=== PATIENT | female | born 1960 | race Caucasian/White ===

== ENCOUNTER → 2022-10-07 | Outpatient (CLI) | payer MEDICARE, MEDICAID, SELFPAY ==
--- NOTE | 2022-10-08 11:19 | PFT ---
INTRODUCTION: The patient is a 62-year-old female that presents for pulmonary function studies secondary to a diagnosis of shortness of breath. Respiratory therapy reported good patient effort. Bronchodilators were used during testing. INTERPRETATION: Forced expiration spirometry demonstrates the presence of a severe large airways obstructive ventilatory defect. There was no significant response to aerosolized bronchodilators. Spirograms are of fair quality but do not plateau indicating slow emptying of the lungs. Body plethysmography was performed and revealed a decreased TLC to 2.76 L, 68% of predicted, indicative of a moderate restrictive ventilatory impairment. Diffusing capacity by single breath CO is reduced at 63% of predicted. IMPRESSION: Irreversible severe mixed ventilatory defect with mild reduction in diffusing capacity.
== END | disposition home or self-care (01) ==
PROVIDERS: PCP Family Medicine; Visit Provider Internal Medicine Critical Care Medicine
DX: R06.02 Shortness of breath (principal)
CPT/HCPCS: 94060; 94726; 94729

== ENCOUNTER → 2022-10-17 | Outpatient (CLI) | payer MEDICARE, MEDICAID, SELFPAY ==
[2022-10-17 12:59] VITALS: PULSE 101; PULSE 104; PULSE 78; PULSE 88; PULSE 92; PULSE 93; PULSE 96; O2SAT 86; O2SAT 88; O2SAT 90; O2SAT 91; O2SAT 92; O2SAT 93; O2SAT 94; O2SAT 95
--- NOTE | 2022-10-17 13:02 | CPS ---
PATIENT HAS HOME OXYGEN THROUGH [facility]. SHE USED A ROLLATOR WALKER FOR STABILITY. WALK TEST BEGAN ON ROOM AIR. OXYGEN PLACED AT 2LPM D/T SPO2 86%. SHE IS INTERESTED IN POC DEVICE TO MAINTAIN MOBILITY AND INCREASE COMPLIANCE WITH USE. PRELIM DATA SENT WITH PT TO F/U APPT AT 7515.
--- NOTE | 2022-10-18 05:30 | PCM.PSN.6M ---
PSN 6 Minute Walk Test 6 Minute Walk Test 6 Minute Walk Test: 6 Minute Walk Test PSN:6-Minute Walk Test Start: 10/17/22 12:59 Freq: Status: Active Protocol: [id number] Document 10/17/22 12:59 [facility] (Rec: 10/17/22 13:05 [facility] [id number]) 6 Minute Walk Test Date Performed 10/17/22 Time Performed 12:30 Height 5 ft Weight: 92.986 kg Weight in Pounds 205.[address]: Tod Kennedy Assistive device used: Walker Pre-test Oxygen Delivery Method Room Air Pulse Ox (%) 92 Pulse Rate (60-100 beats/min) 88 Dyspnea Mika Scale (0-10) 2 1st minute Oxygen Delivery Method Room Air Pulse Ox (%) 91 Pulse Rate (60-100 beats/min) 93 Dyspnea Mika Scale (0-10) 3 Number of Rests Taken 0 Reported Symptoms Increased Work of Breathing 2nd minute Oxygen Delivery Method Room Air Pulse Ox (%) 90 Pulse Rate (60-100 beats/min) 92 Dyspnea Mika Scale (0-10) 3 Number of Rests Taken 1 Reported Symptoms Increased Work of Breathing 3rd minute Oxygen Delivery Method Room Air Pulse Ox (%) 88 Pulse Rate (60-100 beats/min) 101 H Dyspnea Mika Scale (0-10) 4 Number of Rests Taken 0 Reported Symptoms Increased Work of Breathing 4th minute Oxygen Delivery Method Room Air Pulse Ox (%) 86 Pulse Rate (60-100 beats/min) 104 H Dyspnea Mika Scale (0-10) 5 Number of Rests Taken 1 Reported Symptoms Increased Work of Breathing 5th minute Oxygen Flow Rate (L/min) (L/min) 2 Oxygen Delivery Method Nasal Cannula Pulse Ox (%) 94 Pulse Rate (60-100 beats/min) 96 Dyspnea Mika Scale (0-10) 4 Number of Rests Taken 0 Reported Symptoms Increased Work of Breathing 6th minute Oxygen Flow Rate (L/min) (L/min) 2 Oxygen Delivery Method Nasal Cannula Pulse Ox (%) 95 Pulse Rate (60-100 beats/min) 93 Dyspnea Mika Scale (0-10) 4 Number of Rests Taken 0 Reported Symptoms Increased Work of Breathing Post-test Oxygen Delivery Method Room Air Pulse Ox (%) 93 Pulse Rate (60-100 beats/min) 78 Dyspnea Mika Scale (0-10) 2 Full Laps Walked 10 Partial Lap, Number of Tiles Walked 42 Total Distance Walked (ft) 632 10/17/22 13:02 Cardiopulmonary Services by Sumaya Ramirez PATIENT HAS HOME OXYGEN THROUGH [facility]. SHE USED A ROLLATOR WALKER FOR STABILITY. WALK TEST BEGAN ON ROOM AIR. OXYGEN PLACED AT 2LPM D/T SPO2 86%. SHE IS INTERESTED IN POC DEVICE TO MAINTAIN MOBILITY AND INCREASE COMPLIANCE WITH USE. PRELIM DATA SENT WITH PT TO F/U APPT AT 1315. Initialized on 10/17/22 13:02 - END OF NOTE Interpretation Interpretation: The patient was noted to have a lower baseline saturation of 92% on room air at rest. However, in the fourth minute patient desaturated to 86% and required 2 L nasal cannula oxygen. This did maintain saturations throughout the rest of the ambulation. In total, the patient traveled 632 feet over the course of 6 minutes with the assistance of a wheeled walker into breaks. These findings are consistent with a respiratory limitation exercise tolerance. Recommendations Recommendations: No supplemental oxygen is indicated at rest, but patient should be using 2 L nasal cannula with exertion.
== END | disposition home or self-care (01) ==
PROVIDERS: PCP Family Medicine; Visit Provider Internal Medicine Critical Care Medicine
DX: R06.02 Shortness of breath (principal)
CPT/HCPCS: 94618

== ENCOUNTER → 2022-10-28 | Outpatient (CLI) | payer MEDICARE, MEDICAID, SELFPAY | END | disposition home or self-care (01) | LOC: SL 20:42 | PROVIDERS: PCP Family Medicine; Visit Provider Nurse Practitioner Acute Care | DX: G47.33 Obstructive sleep apnea (adult) (pediatric) (principal) | CPT/HCPCS: 95811 ==

== ENCOUNTER → 2023-04-10 | Outpatient (CLI) | payer MEDICARE, MEDICAID, SELFPAY ==
--- NOTE | 2023-04-10 13:57 | CT_ITS ---
STUDY: LOW DOSE CT LUNG CANCER SCREENING REASON FOR EXAM: Female, 62 years old. H/o Tobacco Dependency. Patient smoked 1 1/2 pack per day for 40 years. RADIATION DOSAGE (If Supplied By Facility): CTDIvol = ( 3.02 ) mGy, DLP = ( 100.05 ) mGycm TECHNIQUE: No contrast was administered. Low dose technique was utilized (average mAS-38 and kVp 120). 1.25 mm axial source images with a slice interval of 1.25-mm were reconstructed in lung windows. 2.5 mm axial source images with a slice interval of 2.5-mm were reconstructed in lung windows. 5.0 mm axial source images with a slice interval of 5.0-mm were reconstructed in soft tissue windows. COMPARISON: Comparison is made with prior study dated October 27, 2016. NODULES: There is a 1.5 cm x 2 cm pleural-based nodular density in the lateral aspect of the right lower lobe. This is pleural-based. This is seen on axial image #169 and sagittal image #62. This may represent a focal area of scarring although correlation with a PET scan is recommended. Emphysema: Minimal degree of emphysematous changes. Endobronchial lesion: None Aorta: Atherosclerotic calcification of the aortic arch. CORONARY ARTERIES: Coronary artery calcification is seen. Heart: Unremarkable. Pulmonary artery: Unremarkable Mediastinal nodes: Small benign-appearing mediastinal lymph nodes. Other chest and abdominal findings: CT/Low Dose CT Lung Screening IMPRESSION: Lung-RADS category 4A - Screening at 3 months with LDCT or evaluation with PET/CT may be used. IMPORTANT NOTES FOR USE: ACR Lung-RADS Version 1.1 Assessment Categories Release Date: 2018 Category: Coded 0-4 bases on nodule(s) with highest degree of suspicion. Negative screen is defined as categories 1 and 2; a positive screen is defined as categories 3 and 4. Category 3 and 4A nodules that are unchanged on interval CT should be coded as category 2, and individuals returned to screening in 12 months. Category 4X: Category 3 or 4 nodules with additional imaging findings that increase the suspicion of lung cancer, such as spiculation, GGN that doubles in size in 1 year, enlarged lymph notes, etc. Category Modifiers: S (significant finding unrelated to lung cancer) Electronically Signed: Christiano Barnett MD at 14:55 EDT ,
== END | disposition home or self-care (01) ==
LOC: CT 13:54
PROVIDERS: Referring Provider Internal Medicine Critical Care Medicine; Visit Provider Internal Medicine Critical Care Medicine
DX: F17.211 Nicotine dependence, cigarettes, in remission (principal)
CPT/HCPCS: 71271

== ENCOUNTER → 2023-04-21 | Outpatient (CLI) | payer MEDICARE, MEDICAID, SELFPAY ==
--- NOTE | 2023-04-21 11:00 | PET_ITS ---
EXAMINATION: FDG PET-CT INDICATIONS: A 62-year-old female with a history of pulmonary nodularity. COMPARISON EXAMINATION: CT of the chest report dated 04/10/23. INDEX LESION SIZE SUV INTERPRETATION Right lower lateral lung field, right lower lobe 1.8 max Quantitative criteria for viable neoplasm are not fulfilled, sequential radiologic investigation recommended. TECHNIQUE: Following the intravenous administration of 13.19 mCi of F-18 deoxyglucose via the right hand, multiplanar image acquisitions of the head, neck, chest, abdomen and pelvis to level of mid-thigh, lower extremities obtained at one hour post radiopharmaceutical administration contemporaneously interpreted with the current CT of the head, neck, chest, abdomen and pelvis to level of mid-thigh, lower extremities dated 04/21/[address] of the chest report dated 04/10/23 reveal: SERUM GLUCOSE LEVEL: 119 mg/dl. HEIGHT: 60 inches. WEIGHT: 187 lbs. FINDINGS: Head/Neck: There is no evidence of abnormal increased glucose metabolism in the pharyngeal mucosal space, parapharyngeal space, bilateral-lateral and anterior neck, hypopharynx and distribution of the laryngeal structures. The visualized portion of the cerebral cortical-subcortical structures demonstrate symmetric and preserved glucose metabolism. CHEST: Mild increased radiopharmaceutical concentration is noted in the right lower lateral lung zone, right lower lobe corresponding to a pleural based density defined on CT of the thorax dated 04/21/23. The calculated maximum standard uptake value is 1.8. Prominent radiopharmaceutical concentration is identified in the left ventricular myocardium commensurate with the [place]. Pertinent chest CT findings are as follows. There are no additional parenchymal densities-nodules defined in the right and left hemithorax with quantitatively significant increased FDG uptake. Scattered mediastinal and bilateral axillary soft tissue is ametabolic. There is atherosclerotic calcification defined in the thoracic aorta without evidence of dilatation-aneurysm formation. Coronary arterial calcification is observed. Abdomen/Pelvis: Normal physiologic distribution of the radiopharmaceutical is apparent in the hepatic (3.4) and splenic parenchyma, both renal units, bladder and visualized intestinal tract. Diffuse radiopharmaceutical concentration is noted in all four quadrants of the abdomen and pelvis. Pertinent abdomen and pelvis CT findings are as follows. Colonic diverticulosis is defined without evidence of diverticulitis. Right-left inguinal soft tissue densities reveal no evidence of increased tracer uptake. Post procedural change is defined in the midline anterior abdominal wall. There is atherosclerotic calcification defined in the abdominal aorta without evidence of dilatation-aneurysm formation. Abdominal-pelvic arterial calcification is defined. Skeletal: Facilitated uptake is noted in the left anterolateral chest wall involving sequential rib consistent with trauma-fracture. Increased uptake is noted in the left shoulder articulation associated with the left shoulder arthroplasty most consistent with normal post surgical change in the absence of pain and discomfort. PET/PET/CT Tumor Base -Thigh Init IMPRESSION: 1. NEGATIVE EXAMINATION. There is no definitive quantitative scintigraphic evidence of viable neoplasm. 2. Enhanced tracer uptake noted in the right lower lateral lung zone, right lower lobe does not fulfill quantitative criteria for viable neoplasm. (Mana et al, Journal of Nuclear Medicine, 32:1, 1990). 3. Metabolic and/or anatomic stability may be ensured in the right lower lateral lung zone parenchymal abnormality with repeat FDG PET-CT and/or CT of the thorax in six-nine months if clinically indicated. ([place], Journal of Nuclear Medicine 45:88, P2004 Ana, Seminars in Thoracic and Cardiovascular Surgery 14:292, 2002) Electronic Signature Magdi Herrera D.O. Electronically Signed: Magdi Herrera, at 22:47 EDT ,
== END | disposition home or self-care (01) ==
PROVIDERS: Referring Provider Nurse Practitioner Acute Care; Visit Provider Nurse Practitioner Acute Care
DX: R91.8 Other nonspecific abnormal finding of lung field (principal)
CPT/HCPCS: 78815; A9552

== ENCOUNTER → 2023-04-21 | Outpatient (CLI) | payer MEDICARE, MEDICAID, SELFPAY | END | disposition home or self-care (01) | LOC: SL 09:27 | PROVIDERS: Referring Provider Nurse Practitioner Acute Care; Visit Provider Nurse Practitioner Acute Care | DX: G47.33 Obstructive sleep apnea (adult) (pediatric) (principal) | CPT/HCPCS: 98960; G0463 ==

== ENCOUNTER → 2023-08-28 | Outpatient (CLI) | payer MEDICARE, MEDICAID, SELFPAY ==
--- NOTE | 2023-08-28 13:22 | CT_ITS ---
STUDY: CT CHEST WITHOUT CONTRAST REASON FOR EXAM: Female, 63 years old. Follow lung mass RADIATION DOSAGE (If Supplied By Facility): CTDIvol = ( 17.45 ) mGy, DLP = ( 592.96 ) mGycm TECHNIQUE: Transaxial imaging was performed without the administration of intravenous contrast material. Individualized dose optimization techniques were used for this CT. COMPARISON: Comparison is made with prior study dated April 10, 2023. FINDINGS: CHEST Hyperinflation. Increased markings in the peripheral aspect of the right lower lobe along the lateral wall. This most likely is evidence of scarring. No definite nodule is seen. Emphysematous changes. Coronary artery calcification. There are multiple small lymph nodes within the mediastinum, which are normal in size and morphology most compatible with reactive lymph hyperplasia. Normal hilar regions. Normal unenhanced pulmonary arteries. There is atherosclerotic calcification of the aortic arch with tortuosity and elongation of the aortic arch and descending thoracic aorta. Normal osseous structures. There is no demonstrated abnormality of the visualized upper abdomen. CT/Chest without Contrast IMPRESSION: Findings suggestive of scarring along the peripheral lateral aspect of the right lower lobe. Electronically Signed: Christiano Barnett MD at 15:16 [facility] ,
== END | disposition home or self-care (01) ==
LOC: CT 13:22
PROVIDERS: Referring Provider Nurse Practitioner Acute Care; Visit Provider Nurse Practitioner Acute Care
DX: R91.8 Other nonspecific abnormal finding of lung field (principal)
CPT/HCPCS: 71250

== ENCOUNTER → 2024-08-31 | Outpatient (CLI) | payer MEDICARE, MEDICAID, SELFPAY ==
--- NOTE | 2024-08-31 13:04 | CT_ITS ---
EXAM: CT CHEST WITHOUT INTRAVENOUS CONTRAST CLINICAL INDICATION: smoking TECHNIQUE: Helically acquired images were obtained of the chest without intravenous contrast. This CT exam was performed using one or more of the following dose reduction techniques: automated exposure control, adjustment of the mA and/or kV according to patient size, and/or use of iterative reconstruction technique. RADIATION DOSE: CTDIvol = 2.39 mGy, DLP = 72.36 mGy-cm COMPARISON: CT chest 04/10/2023. FINDINGS: LUNGS AND PLEURAL SPACES: Resolution of the previously described right lower lobe pleural-based nodular density. No pulmonary nodules or mass. No pneumothorax. HEART: Coronary artery calcifications. Heart size is normal. No pericardial effusion. MEDIASTINUM: Unremarkable. No mediastinal or hilar adenopathy. Esophagus is unremarkable. No hiatal hernia. THYROID: Unremarkable. No thyroid lesions. BONES/JOINTS: Degenerative changes of the spine. Left shoulder arthroplasty. No suspicious lytic or blastic abnormality. VASCULATURE: See above. CT/Low Dose CT Lung Screening IMPRESSION: 1. ACR Lung CT Screening Reporting And Data System (Lung-RADS) score: 1 - Recommend continued annual screening with a low-dose CT (LDCT) in 12 months. 2. Resolution of the previously described right lower lobe pleural-based nodular density. This may have indicated a focus of atelectasis or acute airspace disease. 3. Coronary artery calcifications. Electronically Signed: Messi Mcghee MD at 0:16 EST ,
== END | disposition home or self-care (01) ==
LOC: CT 13:03
PROVIDERS: PCP Family Medicine; Referring Provider Nurse Practitioner Acute Care; Visit Provider Nurse Practitioner Acute Care
DX: F17.211 Nicotine dependence, cigarettes, in remission (principal)
CPT/HCPCS: 71271